=== PATIENT | male | born 1995 | race Hispanic/Latino ===

== ENCOUNTER 2019-09-25 11:43 | Emergency (ER) | payer OTHER ==
[~2019-09-25] VITALS: Ht 177.8 cm; Wt 68.2 kg
--- NOTE | 2019-09-25 12:56 | REP ---
CT brain and face: 09/25/2019. Indication: Head/face trauma. Comparison: None. Technique: Unenhanced axial CT images of the brain and face were performed with sagittal and coronal reconstructions of the facial bones provided. Findings: There is no acute intracranial hemorrhage, acute cortical infarction, mass effect, hydrocephalus or acute calvarial fracture. Comminuted minimally displaced right greater than left nasal bone fractures are present with extension into the frontal process of the maxilla on the left. No additional acute facial bone fractures are present. No acute post traumatic ocular or intraorbital abnormalities are present. Periosteal mucosal thickening is noted within the right ethmoid air cells. Impression: No acute intracranial process. Bilateral nasal bone fractures. Electronically Signed by Wilman Barraza DO 09/25/2019 12:48 P
[2019-09-25] MEDS ORDERED: ONDA4TAB6 PO (13:44)
[2019-09-25 13:46] VITALS: BP 116/54
== END 2019-09-25 13:50 | disposition home or self-care (01) ==
LOC: M ED 11:43
DX: S06.0X1A Concussion with loss of consciousness of 30 minutes or less, initial encounter (principal); S02.2XXA Fracture of nasal bones, initial encounter for closed fracture; R04.0 Epistaxis; W19.XXXA Unspecified fall, initial encounter; Y92.89 Other specified places as the place of occurrence of the external cause; Y93.9 Activity, unspecified; Y99.0 Civilian activity done for income or pay